=== PATIENT | male | born 1950 | race African-American/Black ===

== ENCOUNTER → 2016-10-26 | Outpatient (CLI) | payer OTHER ==
[~2016-10-26] MED LIST: ASPI81TA85 PO; INSULANT SC; NOVOINJ12 SC; TENO1TAB3 PO; ZOCO20TA PO
--- NOTE | 2016-10-26 11:17 | REP ---
Chest x-ray: Two views. History: Coronary artery disease. No comparison views. Findings: There is a nodular density projecting in the left base. This may be nipple silhouette as it is not visible on the lateral radiograph. However, I cannot exclude a pulmonary nodule and repeat PA chest x-ray with nipple marker views with the arms raised and lowered is recommended. The aorta is a little calcific and slightly tortuous. The heart is not enlarged. Lung escamilla are otherwise clear. There are mild degenerative changes in the thoracic spine. Impression: Nodular density projects at the left base. Nipple versus nodule. Recommend repeat PA chest x-ray views with arms raised and lowered with nipple markers in place. Signed by Hang Cooney MD 10/26/2016 12:34 P
== END ==
LOC: M RAD 09:34
PROVIDERS: ATTEND Surgery
DX: I25.10 Atherosclerotic heart disease of native coronary artery without angina pectoris (principal)

== ENCOUNTER → 2016-10-28 | Outpatient (CLI) | payer OTHER ==
--- NOTE | 2016-10-28 11:42 | REP ---
CHEST, TWO VIEWS: Two views of the chest are performed and compared to a prior study of 10/26/2016. Nipple markers are placed on today's exam and demonstrate a nodular opacity in each lung base, both of which represent nipple shadows. The previously noted nodular density at the left base corresponds to a nipple shadow. There is no acute infiltrate. The heart is upper limits of normal in size. There is mild calcification of the thoracic aorta. IMPRESSION: Previously noted nodular density in the left lung base corresponds to a nipple shadow. There is no acute pulmonary disease. Signed by Huan Chavez MD 10/28/2016 04:42 P
== END ==
LOC: M RAD 08:52
PROVIDERS: ATTEND Surgery
DX: R91.8 Other nonspecific abnormal finding of lung field (principal)

== ENCOUNTER 2016-11-04 18:10 | Emergency (ER) | payer OTHER ==
[~2016-11-04] VITALS: Ht 170.2 cm; Wt 84.6 kg
[2016-11-04] MEDS ORDERED: TENO1TAB3 PO (18:28)
[2016-11-04] MEDS ORDERED: NOVOINJ12 SC (18:28)
[2016-11-04] MEDS ORDERED: ZOCO20TA PO (18:28)
[2016-11-04] MEDS ORDERED: ASPI81TA85 PO (18:28)
[2016-11-04] MEDS ORDERED: INSULANT SC (18:28)
[2016-11-04 19:35] VITALS: BP 158/98
== END 2016-11-04 20:00 | disposition home or self-care (01) ==
LOC: M ED 18:10
DX: S91.201A Unspecified open wound of right great toe with damage to nail, initial encounter (principal); X58.XXXA Exposure to other specified factors, initial encounter; Y92.149 Unspecified place in prison as the place of occurrence of the external cause; Y93.89 Activity, other specified; Y99.8 Other external cause status; B35.1 Tinea unguium; I10 Essential (primary) hypertension; E11.9 Type 2 diabetes mellitus without complications; F17.210 Nicotine dependence, cigarettes, uncomplicated; Z79.899 Other long term (current) drug therapy; Z79.4 Long term (current) use of insulin; Z79.82 Long term (current) use of aspirin; Z88.0 Allergy status to penicillin; Z88.8 Allergy status to other drugs, medicaments and biological substances